=== PATIENT | female | born 1995 | race Caucasian/White ===

== ENCOUNTER 2022-06-21 17:42 | Emergency (ER) | payer BC, OTHER, SELFPAY ==
[2022-06-21 17:55] VITALS: BP 105/51; PULSE 57; RESP 16; TEMP 36.6; O2SAT 98; BMI 18.6
[2022-06-21 20:32] VITALS: BP 99/72; PULSE 68; RESP 18; O2SAT 97
--- NOTE | 2022-06-21 20:36 | W.ED.GENADLT ---
HPI - General Adult General: Chief complaint: Abdominal Pain Stated complaint: 11wk preg, abd pain Time Seen by Provider: 06/21/22 20:06 Source: patient Mode of arrival: ambulatory Limitations: no limitations History of Present Illness: 26-year-old female who is currently 11 weeks states she has been having upper abdominal pain its been sharp in nature she states also had some diffuse pain but is mainly in epigastric region. She rates her pain a 6 at 10 she denies any vaginal bleeding or vaginal discharge no vomiting no diarrhea she had some slight nausea. Associated symptoms: Deny chest pain, dyspnea, headache(s) or rash Review of Systems Const: Denies: fever(s), chills, body aches or change in appetite Eyes: Denies: blurry vision or eye discomfort ENMT: Denies: throat pain or dental pain Card: Denies: chest pain Resp: Denies: dyspnea GI: Reports: abdominal pain : Denies: dysuria Musc: Denies: neck pain or back pain Skin/Breast: Denies: rash Neuro: Denies: headache(s) Psych: Denies: depression Matt/Lymph: Denies: easy bruising All/Imm: Denies: urticaria PFSH ED PFSH: Medical History (Updated 06/21/22 @ 22:31 by Martin Mccloud MD) No pertinent past medical history Social History (Updated 06/21/22 @ 20:46 by Martin Mccloud MD) Substance/Drug Use: never Physical Exam Const: COMMON NORMALS: no acute distress, patient oriented x3 and healthy appearing HENMT: COMMON NORMALS: normocephalic and atraumatic HEAD & SCALP: normocephalic and atraumatic Eye: COMMON NORMALS: Equal, round and reactive pupils present and EOMs intact bilaterally PUPIL: Yes Equal, round and reactive pupils present Neck/C-Spine: COMMON NORMALS: full ROM and supple Chest: COMMONS NORMALS: normal inspection of the chest and normal palpation of entire chest wall Resp: COMMON NORMALS: normal respiratory effort, No retractions, No use of accessory muscles and clear to auscultation bilaterally AUSCULTATION: clear to auscultation bilaterally Cardio: COMMON NORMALS: regular rate, regular rhythm and No murmurs present (Cardio) RATE: regular rate RHYTHM: regular rhythm GI: COMMON NORMALS: Normal to inspection, nondistended, normoactive bowel sounds present, Soft to palpation, non-tender and no masses PALPATION: Yes Soft to palpation Extremity: COMMON NORMALS: normal to inspection and full ROM Neuro: COMMON NORMALS: patient oriented x3, moves all extremities and no focal motor deficits Psych: COMMON NORMALS: mental status grossly normal, Normal thought process present and cooperative THOUGHT PROCESS: Normal thought process present Skin: COMMON NORMALS: no rashes or lesions noted and no wounds GENERAL SKIN EXAM: no rashes or lesions noted Course Vital Signs: Vital signs: Vital Signs Temperature 97.9 F 06/21/22 17:55 Pulse Rate 68 06/21/22 20:32 Respiratory Rate 18 06/21/22 20:32 Blood Pressure 99/72 06/21/22 20:32 Pulse Oximetry 97 06/21/22 20:32 Oxygen Delivery Me thod 06/21/22 20:32 MDM - General Adult Medical Decision Making Patient presents here with abdominal pain in her lipase is mildly elevated she likely has a mild pancreatitis she feels much improved here I did offer admission states she rather go home I informed her she needs to do at all fluid diet and will treat with pain meds she is to follow-up with her OB and return if worsening she understands agrees plan. Lab Data 06/21/22 20:39 06/21/22 20:39 Laboratory Results WBC 6.9 10^3/uL (4.0-10.0) 06/21/22 20:39 RBC 4.47 10^6/uL (4.1-5.3) 06/21/22 20:39 Hgb 13.4 g/dL (11.5-15.3) 06/21/22 20:39 Hct 40.4 % (37.0-47.0) 06/21/22 20:39 MCV 90.4 fl (81-99) 06/21/22 20:39 MCH 30.0 pg (28.0-34.0) 06/21/22 20:39 MCHC 33.2 g/dL (30.0-36.0) 06/21/22 20:39 RDW 13.1 % (12.1-15.1) 06/21/22 20:39 Plt Count 171 10^3/cmm (130-400) 06/21/22 20:39 MPV 11.2 fL (7.4-10.4) H 06/21/22 20:39 Neut % (Auto) 70.0 % 06/21/22 20:39 Lymph % (Auto) 22.0 % 06/21/22 20:39 Lucas % (Auto) 6.2 % 06/21/22 20:39 Eos % (Auto) 1.0 % 06/21/22 20:39 Baso % (Auto) 0.4 % 06/21/22 20:39 Neut # (Auto) 4.82 10^3/uL (1.8-7.7) 06/21/22 20:39 Lymph # (Auto) 1.5 10^3/uL (0.8-4.8) 06/21/22 20:39 Lucas # (Auto) 0.4 10^3/uL (0.2-0.9) 06/21/22 20:39 Eos # (Auto) 0.1 10^3/uL (0.0-0.8) 06/21/22 20:39 Baso # (Auto) 0.0 10^3/uL (0.0-0.1) 06/21/22 20:39 Nucleated RBC % (auto) 0 % 06/21/22 20: Nucleated RBCs # 0.0 /100WBC 06/21/22 20:39 Sodium 133 mmol/L (136-145) L 06/21/22 20:39 Potassium 3.2 mmol/L (3.5-5.1) L 06/21/22 20:39 Chloride 98 mmol/L (98-107) 06/21/22 20:39 Carbon Dioxide 25 mmol/L (22-29) 06/21/22 20:39 Anion Gap 13.2 (5-19) 06/21/22 20:39 BUN 12 mg/dL (6-20) 06/21/22 20:39 Creatinine 0.5 mg/dL (0.5-0.9) 06/21/22 20:39 GFR Calculation 150.3 mL/min (90-130) H 06/21/22 20:39 Glucose 85 mg/dL (65-115) 06/21/22 20:39 Calculated Osmolality 275 mOsm/kg (285-295) L 06/21/22 20:39 Calcium 9.2 mg/dL (8.5-10.5) 06/21/22 20:39 Total Bilirubin 0.3 mg/dL (0.15-1.2) 06/21/22 20:39 AST 17 U/L (0-32) 06/21/22 20:39 ALT 15 U/L (0-33) 06/21/22 20:39 Alkaline Phosphatase 42 U/L (35-105) 06/21/22 20:39 Total Protein 6.8 g/dL (6.6-8.7) 06/21/22 20:39 Albumin 4.2 g/dL (3.5-5.2) 06/21/22 20:39 Globulin 2.6 g/dL (1.3-4.6) 06/21/22 20:39 Lipase 467 U/L (13-60) H 06/21/22 20:39 Urine Color Yellow (Yellow) 06/21/22 20: Urine Appearance Clear (CLEAR) 06/21/22 20: Urine pH 6 (5-7) 06/21/22 20: Ur Specific [place] 1.020 (1.005-1.030) 06/21/22 20: Urine Protein Trace (Negative) 06/21/22 20: Urine Glucose (UA) Norm (Normal) 06/21/22 20: Urine Ketones 1+ (Negative) H 06/21/22 20: Urine Blood Neg (Negative) 06/21/22 20: Urine Nitrate Negative (Negative) 06/21/22 20: Urine Bilirubin Neg (Negative) 06/21/22 20: Urine Urobilinogen 1 mg/dL (Negative) H 06/21/22 20:27 Ur Leukocyte Esterase Negative (Negative) 06/21/22 20: Urine RBC None /hpf (0-2) 06/21/22 20: Urine WBC None /hpf (0-5) 06/21/22 20: Ur Squamous Epith Cells 10-15 /hpf (0-5) H 06/21/22 20: Calcium Oxalate Crystal None /hpf 06/21/22 20: Amorphous Sediment Not Reportable 06/21/22 20: Urine Bacteria 1+ /hpf (NONE) H 06/21/22 20: Urine Mucus 2+ /hpf 06/21/22 20:27 Discharge Plan Discharge Patient Disposition: Home Clinical Impression: Pancreatitis Condition: Stable Prescriptions: New hydrocodone-acetaminophen 5-325 mg tablet 1 tab PO Q6H PRN (Reason: pain) Qty: 14 0RF ondansetron 4 mg tablet,disintegrating 4 mg PO Q6H PRN (Reason: nausea and vomiting) Qty: 14 0RF Discharge Orders: Discharge ED (Routine); Ordered 06/21/22 Ordered By: Martin Mccloud Referrals: Thien Keating MD [Physician] - 1-3 days Discharge Diet: Advance as tolerated Discharge Activity: Resume usual activity Patient Instructions: Pancreatitis (ED) Coding Level of Care Code ED Communications Executive for Chg Fwd Exam Comprehensive
[2022-06-21] MEDS: ondansetron 2 mg/ML SDV 2 mL 4 MG IVP (20:46)
[2022-06-21] MEDS: sodium chloride 0.9% 1,000 ML 999 ML IV (20:46)
[2022-06-21 20:47] LABS: Basophils % 0.4 %; Eosinophils # 0.1 10^3/uL (0.0-0.8); Hematocrit 40.4 % (37.0-47.0); Hemoglobin 13.4 g/dL (11.5-15.3); Lymphocytes # 1.5 10^3/uL (0.8-4.8); Mean Corpuscular HGB Conc 33.2 g/dL (30.0-36.0); Mean Corpuscular Volume 90.4 fl (81-99); Mean Platelet Volume 11.2 fL (7.4-10.4); Monocytes # 0.4 10^3/uL (0.2-0.9); Monocytes % 6.2 %; Neutrophils # 4.82 10^3/uL (1.8-7.7); Nucleated Red Blood Cells % 0 %; Platelet Count 171 10^3/cmm (130-400); Red Blood Count 4.47 10^6/uL (4.1-5.3); Red Cell Distribution Width 13.1 % (12.1-15.1); White Blood Count 6.9 10^3/uL (4.0-10.0)
[2022-06-21] MEDS: lidocaine 2% viscous 15 ML, aluminum-mag hydrox-simethicon 30 ML, sucralfate oral liq 1 GM PO (20:48)
[2022-06-21 21:17] LABS: Alanine Aminotransferase 15 U/L (0-33); Albumin Level 4.2 g/dL (3.5-5.2); Alkaline Phosphatase 42 U/L (35-105); Anion Gap 13.2 (5-19); Aspartate Amino Transferase 17 U/L (0-32); Blood Urea Nitrogen 12 mg/dL (6-20); Calcium 9.2 mg/dL (8.5-10.5); Carbon Dioxide 25 mmol/L (22-29); Chloride 98 mmol/L (98-107); Globulin 2.6 g/dL (1.3-4.6); Glomerular Filtration Rate 150.3 mL/min (90-130); Glucose 85 mg/dL (65-115); Osmolality Calculated 275 mOsm/kg (285-295); Potassium 3.2 mmol/L (3.5-5.1); Sodium 133 mmol/L (136-145); Total Bilirubin 0.3 mg/dL (0.15-1.2); Total Protein 6.8 g/dL (6.6-8.7)
[2022-06-21 21:24] LABS: Lipase 467 U/L (13-60)
--- NOTE | 2022-06-21 21:31 | USR_ITS ---
PROCEDURE INFORMATION: Exam: US Abdomen, Limited; Right Upper Quadrant Exam date and time: 06/21/2022 9:51 PM Age: 26 years old Clinical indication: Abdominal pain; Generalized; Additional info: Abd pain TECHNIQUE: Imaging protocol: Real time ultrasound of the abdomen with image documentation. Limited exam focused on the right upper quadrant. COMPARISON: No relevant prior studies available. FINDINGS: Liver: Normal. No masses. Gallbladder: Normal. No gallstones. There is no gallbladder wall thickening. Biliary ducts: Normal. No stones. No dilation. Pancreas: Visualized pancreas is unremarkable. Right kidney: Normal. No mass. No hydronephrosis. US/US gall bladder [id number] IMPRESSION: No acute findings.
[2022-06-21 21:37] LABS: Urine Appearance Clear (CLEAR); Urine Color Yellow (Yellow); pH Urine 6 (5-7)
[2022-06-21 21:38] LABS: Add Urine Microscopic? YES; Bacteria Urine 1+ /hpf; Bilirubin Urine Neg (Negative); Blood Urine Neg (Negative); Glucose Urine UA Norm (Normal); Ketones Urine 1+ (Negative); Leukocyte Esterase Urine Negative (Negative); Mucus Urine 2+ /hpf; Nitrate Urine Negative (Negative); Protein Urine Trace (Negative); Urobilinogen Urine 1 mg/dL (Negative)
[2022-06-21 21:39] LABS: Add Urine Culture? No
[2022-06-21 23:22] VITALS: BP 101/67; PULSE 64; RESP 16; O2SAT 100
== END 2022-06-21 23:20 | disposition home or self-care (01) ==
PROVIDERS: Emergency Medicine; Emergency Provider Emergency Medicine
DX: O26.891 Other specified pregnancy related conditions, first trimester (principal); K85.90 Acute pancreatitis without necrosis or infection, unspecified; Z3A.11 11 weeks gestation of pregnancy
CPT/HCPCS: 76705; 80053; 81001; 83690; 85025; 96361; 96374; 99285; J2405; J7030